=== PATIENT | male | born 1990 | race Caucasian/White ===

== ENCOUNTER 2022-01-19 04:48 | Emergency (ER) | payer BC ==
[2022-01-19] MEDS ORDERED: NA CHLORIDE 0.9% 1,000 ML ONE (05:23)
[2022-01-19] MEDS ORDERED: KETOROLAC 30 MG/ML INJ ONE (05:23)
[2022-01-19] MEDS ORDERED: ONDANSETRON 4 MG/2 ML VIAL ONE (05:23)
[2022-01-19 05:57] LABS: Absolute Lymphocytes (CBC) 1.2 K/uL (0.7-4.9); Hematocrit 43.3 % (39.6-49.0); Lymphocytes % 14.5 % (15.3-44.8); MPV 6.7 fL (7.6-11.3); RBC Red Blood Cell Count 4.92 M/uL (4.33-5.43)
[2022-01-19 06:14] LABS: Albumin 3.9 g/dL (3.4-5.0); Bilirubin Total 0.9 mg/dL (0.2-1.0); Potassium 3.7 mmol/L (3.5-5.1); Protein, Total 7.9 g/dL (6.4-8.2)
[2022-01-19] MEDS ORDERED: MORPHINE 4 MG/ML SYR ONE (06:18)
[2022-01-19] MEDS ORDERED: TAMSULOSIN 0.4 MG SR CAP ONE (06:19)
--- NOTE | 2022-01-19 06:46 | EDPHYS ---
Physician Documentation [facility] Name: Maverick Boland II Age: 31 yrs Sex: Male : 1990 Arrival Date: 01/19/2022 Time: 04:51 Bed 16 Private MD: ED Physician Mohit Walters HPI: 01/19 06:07 This 31 yrs old Male presents to ER via Ambulatory with complaints of Back tony Pain, Flank Pain, Abdominal Pain. 06:07 The patient presents with pain that is acute, with no known mechanism of injury. tony Historical: - Allergies: 05:13 No Known Allergies; vc1 - Home Meds: 05:13 None [Active]; vc1 - PMHx: 05:13 None; vc1 - PSHx: 05:13 None; vc1 - Immunization history:: Client reports having NOT received the Covid vaccine. - Social history:: Smoking status: Patient denies any tobacco usage or history of. - Family history:: not pertinent. ROS: 06:07 Constitutional: Negative for fever, chills, and weight loss, Eyes: Negative for injury, tony pain, redness, and discharge, ENT: Negative for injury, pain, and discharge, Neck: Negative for injury, pain, and swelling, Cardiovascular: Negative for chest pain, palpitations, and edema, Respiratory: Negative for shortness of breath, cough, wheezing, and pleuritic chest pain, Back: Negative for injury and pain, : Negative for injury, bleeding, discharge, and swelling, MS/Extremity: Negative for injury and deformity, Skin: Negative for injury, rash, and discoloration, Neuro: Negative for headache, weakness, numbness, tingling, and seizure, Psych: Negative for depression, anxiety, suicide ideation, homicidal ideation, and hallucinations, Allergy/Immunology: Negative for hives, rash, and allergies, Endocrine: Negative for neck swelling, polydipsia, polyuria, polyphagia, and marked weight changes, Hematologic/Lymphatic: Negative for swollen nodes, abnormal bleeding, and unusual bruising. 06:07 Respiratory: Positive for 06:07 Abdomen/GI: Positive for abdominal pain, nausea and vomiting, of the anterior aspect of right lateral abdomen, posterior aspect of right lateral abdomen and right lower quadrant. Exam: 06:07 Constitutional: This is a well developed, well nourished patient who is awake, alert, tony and in no acute distress. Head/Face: Normocephalic, atraumatic. Eyes: Pupils equal round and reactive to light, extra-ocular motions intact. Lids and lashes normal. Conjunctiva and sclera are non-icteric and not injected. Cornea within normal limits. Periorbital areas with no swelling, redness, or edema. ENT: Nares patent. No nasal discharge, no septal abnormalities noted. Tympanic membranes are normal and external auditory canals are clear. Oropharynx with no redness, swelling, or masses, exudates, or evidence of obstruction, uvula midline. Mucous membranes moist. Neck: Trachea midline, no thyromegaly or masses palpated, and no cervical lymphadenopathy. Supple, full range of motion without nuchal rigidity, or vertebral point tenderness. No Meningismus. Chest/axilla: Normal chest wall appearance and motion. Nontender with no deformity. No lesions are appreciated. Cardiovascular: Regular rate and rhythm with a normal S1 and S2. No gallops, murmurs, or rubs. Normal PMI, no JVD. No pulse deficits. Respiratory: Lungs have equal breath sounds bilaterally, clear to auscultation and percussion. No rales, rhonchi or wheezes noted. No increased work of breathing, no retractions or nasal flaring. Back: No spinal tenderness. No costovertebral tenderness. Full range of motion. Male : Normal genitalia with no discharge or lesions. Skin: Warm, dry with normal turgor. Normal color with no rashes, no lesions, and no evidence of cellulitis. MS/ Extremity: Pulses equal, no cyanosis. Neurovascular intact. Full, normal range of motion. Neuro: Awake and alert, GCS 15, oriented to person, place, time, and situation. Cranial nerves II-XII grossly intact. Motor strength 5/5 in all extremities. Sensory grossly intact. Cerebellar exam normal. Normal gait. Psych: Awake, alert, with orientation to person, place and time. Behavior, mood, and affect are within normal limits. 06:07 Abdomen/GI: Inspection: abdomen appears normal, Bowel sounds: normal, Palpation: moderate abdominal tenderness, in the right lower quadrant. Vital Signs: 05:02 BP 142 / 84; Pulse 79; Resp 15; Pulse Ox 99% on R/A; Pain 10/10; ha1 05:11 BP 142 / 84; Pulse 79; Resp 15; Temp 98.3; Pulse Ox 99% on R/A; Weight 127.01 kg; vc1 Height 6 ft. 4 in. (193.04 cm); Pain 10/10; 06:10 BP 128 / 79; Pulse 65; Resp 16 S; Pulse Ox 99% on R/A; Pain 9/10; ha1 06:42 BP 123 / 82; Pulse 65; Resp 18 S; Pulse Ox 98% on R/A; ha1 05:11 Body Mass Index 34.08 (127.01 kg, 193.04 cm) vc1 MDM: 05:04 Patient medically screened. [facility] 06:10 Differential diagnosis: Obesity Peptic Ulcer Pyelonephritis Renal Infarction sprain, tony Ureterolithiasis bowel obstruction, Cholelithiasis, diverticulitis, Hepatitis, Mesenteric ischemia or infarction, non-specific abd pain, Peptic Ulcer Disease, Ureterolithiasis, urinary tract infection. Data reviewed: vital signs, nurses notes, lab test result(s), radiologic studies, CT scan. 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 Counseling: I had a detailed discussion with the patient and/or guardian regarding: the historical points, exam findings, and any diagnostic results supporting the discharge/admit diagnosis, lab results, radiology results. 01/19 05:03 Order name: CBC with Diff; Complete Time: 06:06 [facility] 01/19 05:03 Order name: CMP; Complete Time: 06:38 [facility] 01/19 05:03 Order name: Lipase; Complete Time: 06:38 [facility] 01/19 05:03 Order name: CT Stone Protocol [facility] 01/19 06:50 Order name: Urine Dipstick-Ancillary EDIN 01/19 05:03 Order name: IV Saline Lock; Complete Time: 05:50 [facility] 01/19 05:03 Order name: Labs collected and sent; Complete Time: 05:50 [facility] 01/19 05:03 Order name: Urine Dipstick-Ancillary (obtain specimen); Complete Time: 06:48 [facility] Administered Medications: 05:35 Drug: Ketorolac 30 mg Route: IVP; Site: left forearm; 1 06:00 Follow up: Response: No adverse reaction; Pain is unchanged, physician notified ha1 05:40 Drug: NS 0.9% 1000 ml Route: IV; Rate: 1 bolus; Site: left forearm; ha1 06:53 Follow up: Response: No adverse reaction; IV Status: Completed infusion; IV Intake: ha1 1000ml 07:23 Follow up: Response: No adverse reaction; IV Status: Completed infusion; IV Intake: db 1000ml 05:40 Drug: Zofran (Ondansetron) 4 mg Route: IVP; Site: left forearm; ha1 06:00 Follow up: Response: No adverse reaction ha1 06:28 Drug: morphine 4 mg Route: IVP; Infused Over: 4 mins; Site: left forearm; ha1 06:42 Follow up: Response: No adverse reaction; Pain is decreased; RASS: Alert and Calm (0) ha1 06:32 Drug: Flomax (tamsulosin) 0.4 mg Route: PO; ha1 06:52 Follow up: Response: No adverse reaction ha1 06:53 Not Given (Duplicate Order): Zofran (Ondansetron) 4 mg IVP once; over 2 minutes ha1 Disposition Summary: 01/19/22 06:46 Discharge Ordered Location: Home tony Problem: new tony Symptoms: have improved tony Condition: Stable tony Diagnosis - Hydronephrosis with renal and ureteral calculous obstruction tony Followup: tony - With: Private Physician - When: 2 - 3 days - Reason: Followup: tony - With: - When: 2 - 3 days - Reason: Recheck today's complaints, Re-evaluation by your physician Discharge Instructions: - Discharge Summary Sheet tony - Kidney Stones tony - Kidney Stones, [id number] tony - Hydronephrosis tony - Dietary Guidelines to Help Prevent Kidney Stones tony Forms: - Medication Reconciliation Form tony - Thank You Letter tony - Antibiotic Education tony - Prescription Opioid Use tony - Work release form vc1 Prescriptions: - Flomax 0.4 mg Oral capsule - take 1 capsule by ORAL route once daily 1/2 hour following the same meal each tony day; 30 capsule; Refills: 0, Product Selection Permitted - Zofran 4 mg Oral Tablet - take 1 tablet by ORAL route every 12 hours As needed; 20 tablet; Refills: 0, [facility] Product Selection Permitted - Cipro 500 mg Oral Tablet - take 1 tablet by ORAL route every 12 hours for 7 days; 14 tablet; Refills: 0, [facility] Product Selection Permitted - Tylenol-Codeine #3 300 mg-30 mg Oral - take 2 tablet by ORAL route every 6 hours; 20 tablet; Refills: 0, Product tony Selection Permitted Signatures: Dispatcher [employer] Mohit Alicea MD MD cha Calcote, Vanessa RN RN vc1 Princess Haywood RN RN ha1 Sana Dennis RN db
--- NOTE | 2022-01-19 06:46 | ER ---
Nurse's Notes [facility] Name: Maverick Boland II Age: 31 yrs Sex: Male : 1990 Arrival Date: 01/19/2022 Time: 04:51 Bed 16 Private MD: Diagnosis: Hydronephrosis with renal and ureteral calculous obstruction Presentation: 01/19 05:11 Chief complaint: Patient states: "I woke up around 1:30-2 with horrible pain from my vc1 back radiating to my stomach.". Coronavirus screen: Vaccine status: Patient reports being unvaccinated. At this time, the client does not indicate any symptoms associated with coronavirus-19. Ebola Screen: No symptoms or risks identified at this time. Initial Sepsis Screen: Does the patient meet any 2 criteria? No. Patient's initial sepsis screen is negative. Does the patient have a suspected source of infection? No. Patient's initial sepsis screen is negative. Risk Assessment: Do you want to hurt yourself or someone else? Patient reports no desire to harm self or others. Onset of symptoms was January 19, 2022 at 01:30. 05:11 Method Of Arrival: Ambulatory vc1 05:11 Acuity: JAVY 3 vc1 Triage Assessment: 05:13 General: Appears in no apparent distress. uncomfortable, Behavior is calm, cooperative, vc1 appropriate for age. Pain: Complains of pain in right low back and posterior aspect of right lateral abdomen Pain radiates to right lower quadrant Pain currently is 10 out of 10 on a pain scale. Quality of pain is described as sharp. EENT: No deficits noted. Neuro: Level of Consciousness is awake, alert, obeys commands, Oriented to person, place, time, situation, Appropriate for age. Cardiovascular: No deficits noted. Respiratory: Airway is patent Respiratory effort is even, unlabored, Respiratory pattern is regular, symmetrical. GI: Reports lower abdominal pain, vomiting. : No deficits noted. Derm: No deficits noted. Musculoskeletal: Circulation, motion, and sensation intact. Historical: - Allergies: 05:13 No Known Allergies; vc1 - Home Meds: 05:13 None [Active]; vc1 - PMHx: 05:13 None; vc1 - PSHx: 05:13 None; vc1 - Immunization history:: Client reports having NOT received the Covid vaccine. - Social history:: Smoking status: Patient denies any tobacco usage or history of. - Family history:: not pertinent. Screenin:15 Abuse screen: Denies threats or abuse. Nutritional screening: No deficits noted. vc1 Tuberculosis screening: No symptoms or risk factors identified. Fall Risk None identified. Assessment: 05:02 Reassessment:. General: Appears uncomfortable, Behavior is cooperative, anxious. Pain: ha1 Complains of pain in posterior aspect of right lateral abdomen Pain radiates to abdomen Pain currently is 10 out of 10 on a pain scale. Quality of pain is described as throbbing. 05:02 Pain:. Neuro: Level of Consciousness is awake, alert, obeys commands, Oriented to ha1 person, place, time, situation. Cardiovascular: Patient's skin is warm and dry. Respiratory: Airway is patent Trachea midline Respiratory effort is even, unlabored, Respiratory pattern is regular, symmetrical. GI: Abdomen is flat, non-distended, Bowel sounds present X 4 quads. Reports lower abdominal pain. : No signs and/or symptoms were reported regarding the genitourinary system. Musculoskeletal: Circulation, motion, and sensation intact. Range of motion: intact in all extremities. 06:10 Reassessment: Patient and/or family updated on plan of care and expected duration. Pain ha1 level reassessed. Patient is alert, oriented x 3, equal unlabored respirations, skin warm/dry/pink. 9/10. 06:49 Reassessment: Patient and/or family updated on plan of care and expected duration. Pain ha1 level reassessed. Patient is alert, oriented x 3, equal unlabored respirations, skin warm/dry/pink. pain 4/10. Vital Signs: 05:02 BP 142 / 84; Pulse 79; Resp 15; Pulse Ox 99% on R/A; Pain 10/10; ha1 05:11 BP 142 / 84; Pulse 79; Resp 15; Temp 98.3; Pulse Ox 99% on R/A; Weight 127.01 kg; vc1 Height 6 ft. 4 in. (193.04 cm); Pain 10/10; 06:10 BP 128 / 79; Pulse 65; Resp 16 S; Pulse Ox 99% on R/A; Pain 9/10; ha1 06:42 BP 123 / 82; Pulse 65; Resp 18 S; Pulse Ox 98% on R/A; ha1 05:11 Body Mass Index 34.08 (127.01 kg, 193.04 cm) vc1 ED Course: 04:51 Patient arrived in ED. ja2 05:02 Mohit Walters MD is Attending Physician. tony 05:13 Triage completed. vc1 05:15 Arm band placed on left wrist. vc1 05:18 Princess Haywood, RN is Primary Nurse. ha1 05:50 CBC with Diff Sent. ha1 05:50 CMP Sent. ha1 05:50 Lipase Sent. ha1 06:01 CT Stone Protocol In Process Unspecified. EDMS 06:46 Jose Martin Horton MD is Referral Physician. tony 07:39 Patient has correct armband on for positive identification. ap3 07:39 No provider procedures requiring assistance completed. IV discontinued, intact, ap3 bleeding controlled, No redness/swelling at site. Pressure dressing applied. Administered Medications: 05:35 Drug: Ketorolac 30 mg Route: IVP; Site: left forearm; ha1 06:00 Follow up: Response: No adverse reaction; Pain is unchanged, physician notified ha1 05:40 Drug: NS 0.9% 1000 ml Route: IV; Rate: 1 bolus; Site: left forearm; ha1 06:53 Follow up: Response: No adverse reaction; IV Status: Completed infusion; IV Intake: ha1 1000ml 07:23 Follow up: Response: No adverse reaction; IV Status: Completed infusion; IV Intake: db 1000ml 05:40 Drug: Zofran (Ondansetron) 4 mg Route: IVP; Site: left forearm; ha1 06:00 Follow up: Response: No adverse reaction ha1 06:28 Drug: morphine 4 mg Route: IVP; Infused Over: 4 mins; Site: left forearm; ha1 06:42 Follow up: Response: No adverse reaction; Pain is decreased; RASS: Alert and Calm (0) ha1 06:32 Drug: Flomax (tamsulosin) 0.4 mg Route: PO; ha1 06:52 Follow up: Response: No adverse reaction ha1 06:53 Not Given (Duplicate Order): Zofran (Ondansetron) 4 mg IVP once; over 2 minutes ha1 Medication: 07:39 VIS not applicable for this client. ap3 Intake: 06:53 IV: 1000ml; Total: 1000ml. ha1 07:23 IV: 1000ml; Total: 2000ml. db Outcome: 06:46 Discharge ordered by . tony 07:39 Discharged to home ambulatory. ap3 07:39 Condition: good 07:39 Discharge instructions given to patient, Instructed on discharge instructions, follow up and referral plans. Demonstrated understanding of instructions, follow-up care, medications. 07:39 Patient left the ED. ap3 Signatures: Dispatcher [employer] EDWV Mohit Walters MD MD cha Prokisch, Amanda, RN RN ap3 Jessica Moreau Vanessa RN RN vc1 Princess Haywood RN RN ha1 Sana Dennis RN RN db
[2022-01-19 06:49] LABS: Urine Blood 3+ (Negative); Urine Glucose Negative (Negative); Urine Protein Trace (Negative); Urine Specific Gravity 1.025 (1.005-1.030)
[2022-01-19 07:46] VITALS: TEMP 98.3
[2022-01-19 07:48] VITALS: BP 123/82; O2SAT 98
--- NOTE | 2022-01-19 12:56 | RAD REPORT ---
EXAM DESCRIPTION: CT - Stone Protocol - 01/19/2022 5:59 am CLINICAL HISTORY: 31 years Male right flank pain, kidney stone suspected TECHNIQUE: Axial CT imaging of the abdomen and pelvis was performed without oral or intravenous cont rast. Sagittal and coronal reconstructed images were then performed. The CT study is performed acco rding to ALARA (as low as reasonably achievable) or ALARA/IMAGE GENTLY, with automatic adjustment of mA and/or kV according to patient size. Performed on: 01/19/2022 at 5:58 AM COMPARISON: No prior studies were available for comparison.. FINDINGS: Lung bases: The lung bases are clear. The cardiac silhouette extends into the right hemith orax consistent with a situs anomaly. Liver: The liver measures approximately 20 cm in craniocaudal dimension and is located in the left he miabdomen. No focal hepatic abnormalities are appreciated on this unenhanced scan. There is decreased attenuation of the liver commonly due to fatty infiltration. Spleen: The spleen is normal in size, configuration and attenuation and is located in the right upper quadrant. No focal splenic abnormalities are appreciated on this unenhanced scan. Gallbladder and bile duct: The gallbladder is well distended and unremarkable. There is no biliary ductal dilatation. Pancreas: The pancreas is grossly normal in size and configuration. Adrenal Glands: The adrenal glands are normal in size and configuration. Kidneys: The kidneys are normal in size and configuration. There is mild right-sided hydronephrosis a nd hydroureter secondary to a 3 x 3 x 3 mm calcification in the distal right ureter above the uretero vesical junction. There is no evidence of nephrolithiasis. No additional focal renal abnormalities ar e identified. Stomach: The stomach is located in the right upper quadrant. There is no definite hiatal hernia. Bowel: The bowel gas pattern is non specific and non obstructive. Appendix: The appendix is normal. Free air: There is no evidence of free air. Free fluid: There is no evidence of free fluid. Vasculature: The aorta is normal in caliber and contour. The inferior vena cava is grossly unremarkab le. Lymphadenopathy: No pathologic lymphadenopathy is identified. Bladder: The bladder is partially distended and smooth in contour. Reproductive: The prostate gland is grossly within normal limits. Bones: No acute osseous abnormalities are identified. Soft tissues: No acute soft tissue abnormalities are identified. 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 2. Mild right-sided hydronephrosis and hydroureter secondary to a 3 mm calcification in the distal ri ght ureter above the ureterovesical junction. These findings were discussed with Dr. Walters on 01/19/2022 at 6:39 AM central time. Electronically signed by: Laurie Ratliff DO 01/19/2022 6:44 AM CDT Due to temporary technical issues with the PACS/Fluency reporting system, reports are being signed by the in house radiologists without review as a courtesy to insure prompt reporting. The interpreting radiologist is fully responsible for the content of the report.
== END 2022-01-19 07:39 | disposition home or self-care (01) ==
LOC: ER 04:48
DX: N13.2 Hydronephrosis with renal and ureteral calculous obstruction (principal)
CPT/HCPCS: 96361; 85025; 36415; 81003; 83690; 80053; 76377; 74176; 96375; 96374; 99284; J7030; J2405